=== PATIENT | male | born 1980 | race Two or more races ===

== ENCOUNTER 2020-09-06 17:00 | Outpatient (REF) | payer OTHER, SELFPAY ==
[2020-09-06 17:26] LABS: COVID-19 Test Negative (Negative)
== END 2020-09-06 17:01 | disposition home or self-care (01) ==
LOC: HO.LAB 17:00
PROVIDERS: Visit Provider Internal Medicine
DX: Z20.828 Contact with and (suspected) exposure to other viral communicable diseases (principal)
CPT/HCPCS: 87635

== ENCOUNTER 2020-09-10 08:11 | Outpatient (REF) | payer OTHER, SELFPAY ==
[2020-09-10 08:37] LABS: COVID-19 Test Negative (Negative)
== END 2020-09-10 08:12 | disposition home or self-care (01) ==
LOC: HO.LAB 08:11
PROVIDERS: Visit Provider Internal Medicine
DX: Z20.828 Contact with and (suspected) exposure to other viral communicable diseases (principal)
CPT/HCPCS: 87635

== ENCOUNTER 2020-10-14 06:43 | Outpatient (REF) | payer OTHER, SELFPAY ==
[2020-10-14 07:16] LABS: COVID-19 Test Negative (Negative)
== END 2020-10-14 06:44 | disposition home or self-care (01) ==
LOC: HO.EMPCOV 06:43
PROVIDERS: Visit Provider Internal Medicine
DX: Z20.828 Contact with and (suspected) exposure to other viral communicable diseases (principal)
CPT/HCPCS: 87635; C9803

== ENCOUNTER 2021-02-12 11:08 | Emergency (ER) | payer OTHER, SELFPAY ==
--- NOTE | ~2021-02-12 | CT_ITS ---
EXAMINATION: CT HEAD WITHOUT CONTRAST CLINICAL INFORMATION: Fatigue, weakness and blurry vision COMPARISON: Previous head CT October 2009 TECHNIQUE: Contiguous axial imaging was performed from the skull base to vertex without intravenous administration of contrast. This CT examination was performed using dose optimization techniques as appropriate, variously including the following: *Automated exposure control *Adjustment of mA and/or kV according to patient size (this includes techniques or standardized protocols for targeted exams where dose is matched to indication/reason for exam; i.e. extremities or head) *Use of iterative reconstruction technique DLP: 959 mGy-cm FINDINGS: There is no evidence of an extra-axial collection. There is no evidence of intra-axial or extra-axial hemorrhage. There is slight asymmetry of the lateral ventricles similar to previous exam. Ventricles and extra-axial CSF spaces are otherwise normal. Otero-white matter differentiation is normal. No mass, mass effect or infarct is seen. Review of bone windows demonstrates no evidence of a skull fracture. There is a polyp or cyst in the left maxillary sinus. The paranasal sinuses, mastoid air cells and middle ears are otherwise clear. CT/CT head/brain wo con IMPRESSION: No acute intracranial pathology.
--- NOTE | ~2021-02-12 | XR_ITS ---
EXAMINATION: XR CHEST CLINICAL INFORMATION: Generalized fatigue COMPARISON: None TECHNIQUE: AP portable view of the chest was obtained. FINDINGS: No significant abnormality is noted involving the heart, lungs, mediastinum, bony thorax or soft tissues. XR/XR chest 1V IMPRESSION: No acute disease.
[2021-02-12 11:32] VITALS: BP 153/103; PULSE 95; RESP 18; TEMP 36.6; BMI 48.0
--- NOTE | 2021-02-12 12:14 | ECG_ITS ---
Test Reason : BLURRY VISION Blood Pressure : / mmHG Vent. Rate : 085 BPM Atrial Rate : 085 BPM P-R Int : 178 ms QRS Dur : 090 ms QT Int : 362 ms P-R-T Axes : 062 -10 024 degrees QTc Int : 430 ms Normal sinus rhythm Normal ECG No previous ECGs available Referred By: Ashley Alvarado Electronically Signed By:REGAN ALFREDO MD
--- NOTE | 2021-02-12 12:22 | ED.GENADULT ---
HPI - General Adult General Chief complaint: General Medical Stated complaint: hbp, blurry vision Time Seen by Provider: 02/12/21 12:07 Source: patient Mode of arrival: ambulatory History of Present Illness HPI narrative: 40-year-old male with a past medical history of hypertension, diabetes, presenting to the ED complaining generalized fatigue, difficulty concentrating, and intermittent blurry vision x a few days. Reports overall low energy. States was at work connection [employer] and had elevated blood pressure and was sent to ED for evaluation. Reports compliance with hypertensive medications at home. Denies taking anticoagulation. Denies nausea, vomiting, headache, lightheadedness/dizziness, CP/SOB, numbness, tingling, weakness, decreased p.o. intake, recent travel, exposure to COVID-19 Related Data Allergies Allergy/AdvReac Type Severity Reaction Status Date / Time No Known Allergies Allergy Unverified 02/12/21 12:14 Review of Systems Review of Systems: Constitutional: No Fever, No Chills, + Fatigue, + Malaise ENT/Mouth: No Ear Pain, No Nasal Congestion, No sore throat, No Rhinorrhea Eyes: No Eye Pain, + Vision Changes Cardiovascular: No Chest Pain, No SOB, No Edema Respiratory: No Cough, No Sputum, No Dyspnea Gastrointestinal: No Nausea, No Vomiting, No Diarrhea, No Constipation, No Abdominal pain Genitourinary: No irregular bleeding, No Dysuria Musculoskeletal: No joint pain, No Myalgias Skin: No Skin Lesions, No rash Neuro: + Weakness, No Numbness, No Paresthesias, No Loss of Consciousness, No Dizziness, No Headache, + difficulty concentrating Yes all other systems are reviewed and are negative Neurologic: Denies Abnormal speech present [facility] Past Medical History Attestation statement: The following information was validated with the patient. Medical History (Updated 02/12/21 @ 14:15 by PETRA Millan) HTN (hypertension) IDDM (insulin dependent diabetes mellitus) Social History Social History Advance Directives: No Physical Exam Vital Signs: Vital Signs: Last Vital Signs Temp 98.0 F 02/12/21 13:24 Pulse 89 02/12/21 13:24 Resp 17 02/12/21 13:24 BP 135/84 02/12/21 13:24 Pulse Ox 98 02/12/21 13:24 Body Mass Index 48.0 Const: General: cooperative, healthy appearing, comfortable, no acute distress, well developed, alert and awake Orientation/consciousness: patient oriented x3 Limitations: no limitations HENMT: Head: Yes normal to inspection Ears: hearing grossly normal bilaterally General nose exam: Normal external nose present Face and sinus: Yes normal facial exam Eyes: General: appearance normal, both eyes and all related structures Pupils: Equal, round and reactive pupils present EOM: EOMs intact bilaterally Neck: Neck: Yes normal visual inspection and Yes no meningeal signs Resp: Effort & Inspection: normal respiratory effort Auscultation: clear to auscultation bilaterally, no rales, no rhonchi and no wheezes Cardio: Rate: regular rate Heart sounds: S1 normal heart sound present and S2 normal heart sound present GI: Inspection: Yes normal to inspection Palpation (GI): Soft to palpation, nontender, no guarding and not rigid Skin: Rashes: no rashes Wounds: no wounds Neuro: General: patient oriented x3, tone normal, moves all extremities, no meningeal signs, no focal motor deficits and CN's II-XI intact bilaterally Cranial nerves: Yes Equal, round and reactive pupils present Cognition (Neuro): normal cognition Speech: No Abnormal speech present Gait exam (Neuro): Normal gait present Motor exam (neuro): 5/5 motor strength present throughout and Pronator motor function not present Coordination: [id number] test normal Extrem: General: Yes normal to inspection Course Course Course Narrative: -labs unremarkable, troponin negative CT head/brain wo con IMPRESSION: No acute intracranial pathology XR chest 1V IMPRESSION: No acute disease. -orthostatic vital signs negative >> results discussed with patient including worrisome signs and symptoms and strict return precautions. Discussed with patient he should follow up with his PCP, Ophthalmology and Neurology. I will call COVID-19 results. He verbalized understanding feel safe for discharge home Medical Decision Making MDM Narrative Medical decision making narrative: 40-year-old male with a past medical history of hypertension, diabetes, presenting to the ED complaining generalized fatigue, difficulty concentrating, and intermittent blurry vision x a few days. Reports overall low energy. On exam initially hypertensive, now normotensive, NAD/nontoxic appearing, no focal neuro deficits. Concern for viral syndrome/COVID-19 vs hypertensive urgency vs metabolic abnormalities. Lower concern for SAH/IC pathology or ACS Plan: EKG, labs, UA, CXR, head CT, IVF, orthostatics, reassess Lab Data Result diagrams: 02/12/21 12:25 02/12/21 12:24 Labs: Lab Results 02/12/21 02/12/21 02/12/21 Range/Units 12:24 12:25 12:25 WBC 6.3 (4.8-10.8) X10*3/uL RBC 5.64 (4.60-5.80) X10*6/uL Hgb 15.5 (14.0-18.0) g/dl Hct 46.5 (42-52) % MCV 82.4 (80-98) fL MCH 27.5 (27.0-33.0) pg MCHC 33.3 (31.0-36.0) g/dl RDW 12.6 (11.0-16.0) % Plt Count 293 (160-400) X10*3/uL MPV 9.6 (9.4-12.4) fL Immature Gran % (Auto) 0.2 (0.0-0.4) % Neut % (Auto) 46.8 (45-73) % Lymph % (Auto) 44.4 H (20-40) % Payne % (Auto) 7.8 (2-11) % Eos % (Auto) 0.5 (0-4) % Baso % (Auto) 0.3 (0-2) % Lymph # (Auto) 2.8 (1.2-4.9) X10*3/uL Payne # (Auto) 0.5 (0.1-1.2) X10*3/uL Eos # (Auto) 0.0 (0.0-0.4) X10*3/uL Baso # (Auto) 0.0 (0.0-0.2) X10*3/uL Abs Immat Gran (auto) 0.01 (0.00-0.03) X10*3/uL Absolute Neuts (auto) 3.0 (2.0-8.3) X10*3/uL Absolute Nucleated RBC 0.000 (0.0-0.012) X10*3/uL Nucleated RBC % (auto) 0.0 (0.0-0.2) /100WBC PT (10.8-13.0) SEC INR (0.9-1.1) APTT (24.1-38.0) SEC Sodium 139 (135-145) mmol/L Potassium 4.0 (3.3-5.1) mmol/L Chloride 102 (96-108) mmol/L Carbon Dioxide 26 (22-29) mmol/L Anion Gap 15 (12-20) Creatinine 1.35 (0.5-1.4) mg/dL Estim Creat Clear Calc 87.9 Estimated GFR 58 Random Glucose 176 H (60-115) mg/dL Magnesium 2.2 (1.6-2.6) mg/dL Total Bilirubin 0.6 (0.0-1.0) mg/dL Direct Bilirubin 0.2 (0.0-0.5) mg/dL AST 25 (5-37) U/L ALT 29 (0-40) U/L Alkaline Phosphatase 69 (39-117) U/L Troponin I High Sens < 3.5 (<3.5-35.0) ng/L Total Protein 7.3 (6.5-8.0) g/dL Albumin 4.6 (3.5-5.0) g/dL 02/12/21 Range/Units 12:25 WBC (4.8-10.8) X10*3/uL RBC (4.60-5.80) X10*6/uL Hgb (14.0-18.0) g/dl Hct (42-52) % MCV (80-98) fL MCH (27.0-33.0) pg MCHC (31.0-36.0) g/dl RDW (11.0-16.0) % Plt Count (160-400) X10*3/uL MPV (9.4-12.4) fL Immature Gran % (Auto) (0.0-0.4) % Neut % (Auto) (45-73) % Lymph % (Auto) (20-40) % Payne % (Auto) (2-11) % Eos % (Auto) (0-4) % Baso % (Auto) (0-2) % Lymph # (Auto) (1.2-4.9) X10*3/uL Payne # (Auto) (0.1-1.2) X10*3/uL Eos # (Auto) (0.0-0.4) X10*3/uL Baso # (Auto) (0.0-0.2) X10*3/uL Abs Immat Gran (auto) (0.00-0.03) X10*3/uL Absolute Neuts (auto) (2.0-8.3) X10*3/uL Absolute Nucleated RBC (0.0-0.012) X10*3/uL Nucleated RBC % (auto) (0.0-0.2) /100WBC PT 11.4 (10.8-13.0) SEC INR 1.0 (0.9-1.1) APTT 37.6 (24.1-38.0) SEC Sodium (135-145) mmol/L Potassium (3.3-5.1) mmol/L Chloride (96-108) mmol/L Carbon Dioxide (22-29) mmol/L Anion Gap (12-20) Creatinine (0.5-1.4) mg/dL Estim Creat Clear Calc Estimated GFR Random Glucose (60-115) mg/dL Magnesium (1.6-2.6) mg/dL Total Bilirubin (0.0-1.0) mg/dL Direct Bilirubin (0.0-0.5) mg/dL AST (5-37) U/L ALT (0-40) U/L Alkaline Phosphatase (39-117) U/L Troponin I High Sens (<3.5-35.0) ng/L Total Protein (6.5-8.0) g/dL Albumin (3.5-5.0) g/dL ECG Data Attestation: I personally reviewed and interpreted this ECG as follows: Interpretation: EKG normal sinus rhythm. Rate of 85, nonischemic/no STEMI. QTC 430 Discharge Plan Discharge Clinical Impression: Malaise, Blurred vision Patient Disposition: Home, Self-Care Instructions: Blurred Vision (ED), Fatigue (ED) Additional Instructions: Your blood work was reassuring today in the ED Your head CT was negative Your x-ray was unremarkable Your COVID-19 result is pending at this time, I will call you with results in the next few hours Make sure you are staying hydrated at home Follow-up with her primary care doctor, Ophthalmology, and then Neurology as needed If her symptoms persist or worsen, become constant, he developed any chest pain, shortness of breath, headache, or weakness return to the ED Referrals: Physician,Bradley [Primary Care Provider] - 2 days Maciel Suarez [Physician] - 2 days
[2021-02-12] MEDS: 0.9 % Sodium Chloride 1,000 ML 999 ML IVCONT (12:26)
[2021-02-12 12:34] LABS: MANUAL DIFF FLAG NO
[2021-02-12 12:38] LABS: Basophils Percent Auto 0.3 % (0-2); Eosinophils Percent Auto 0.5 % (0-4); Hematocrit 46.5 % (42-52); Hemoglobin 15.5 g/dl (14.0-18.0); Imm Gran Abs Auto 0.01 X10*3/uL (0.00-0.03); Imm Gran Pct Auto 0.2 % (0.0-0.4); Lymphocytes Absolute Auto 2.8 X10*3/uL (1.2-4.9); Lymphocytes Percent Auto 44.4 % (20-40); Mean Corpuscular HGB Conc 33.3 g/dl (31.0-36.0); Mean Corpuscular Hemoglobin 27.5 pg (27.0-33.0); Mean Corpuscular Volume 82.4 fL (80-98); Mean Platelet Volume 9.6 fL (9.4-12.4); Monocytes Absolute Auto 0.5 X10*3/uL (0.1-1.2); Monocytes Percent Auto 7.8 % (2-11); Neutrophils Percent Auto 46.8 % (45-73); Platelet Count 293 X10*3/uL (160-400); Red Blood Count 5.64 X10*6/uL (4.60-5.80); Red Cell Distribution Width 12.6 % (11.0-16.0); White Blood Count 6.3 X10*3/uL (4.8-10.8)
[2021-02-12 12:43] LABS: Prothrombin Time 11.4 SEC (10.8-13.0)
[2021-02-12 12:46] LABS: Partial Thromboplastin Time 37.6 SEC (24.1-38.0)
[2021-02-12 13:00] LABS: Alanine Aminotransferase 29 U/L (0-40); Albumin Level 4.6 g/dL (3.5-5.0); Alkaline Phosphatase 69 U/L (39-117); Anion Gap 15 (12-20); Aspartate Amino Transferase 25 U/L (5-37); Bilirubin Direct 0.2 mg/dL (0.0-0.5); Bilirubin Total 0.6 mg/dL (0.0-1.0); Carbon Dioxide 26 mmol/L (22-29); Chloride 102 mmol/L (96-108); Creatinine Clr Calc Pharmacy 87.9; Estimated Glomerular Filt Rate 58; Glucose Random 176 mg/dL (60-115); Magnesium 2.2 mg/dL (1.6-2.6); Sodium 139 mmol/L (135-145); Total Protein 7.3 g/dL (6.5-8.0)
[2021-02-12 13:03] LABS: Troponin-I High Sensitivity < 3.5 ng/L (<3.5-35.0)
[2021-02-12 13:23] VITALS: BP 135/84; BP 139/75; PULSE 89
[2021-02-12 13:24] VITALS: BP 135/84; BP 144/80; PULSE 101; PULSE 89; RESP 17; TEMP 36.7; O2SAT 98
[2021-02-12 14:00] VITALS: BP 129/90; PULSE 78; RESP 18; O2SAT 98
[2021-02-12 14:48] LABS: Influenza A PCR NEGATIVE (Negative); Influenza B PCR NEGATIVE (Negative); Resp Syncy Virus RNA Qual PCR NEGATIVE (Negative); SARS COV2 PCR INHOUSE NEGATIVE (Negative)
[2021-02-12 16:48] LABS: Blood Urea Nitrogen 18 mg/dL (9-16)
== END 2021-02-12 14:45 | disposition home or self-care (01) ==
PROVIDERS: Physician Assistant; Emergency Provider Emergency Medicine Emergency Medical Services
DX: H53.8 Other visual disturbances (principal); I10 Essential (primary) hypertension; R53.81 Other malaise; Z79.899 Other long term (current) drug therapy; Z20.822 Contact with and (suspected) exposure to COVID-19
CPT/HCPCS: 0241U; 36415; 70450; 71045; 80048; 80076; 83735; 84484; 85025; 85610; 85730; 93005; 96360; 99283